=== PATIENT | female | born 1940 | race Caucasian/White ===

== ENCOUNTER 2021-03-27 16:16 | Inpatient (IN) | payer MEDICARE, OTHER ==
[~2021-03-27] VITALS: Ht 152.4 cm; Wt 69.4 kg
[2021-03-27] MEDS ORDERED: LOSA50 PO (16:32)
[2021-03-27] MEDS ORDERED: GLIP10 PO (16:32)
[2021-03-27] MEDS ORDERED: AMLO10 PO (16:32)
[2021-03-27 16:54] LABS: Source, Urine Catheter
[2021-03-27 17:04] LABS: Hematocrit 36.4 % (33.0-51.0); Hemoglobin 13.2 g/dL (11.5-16.0); Mean Corpuscular HGB 30.2 pg (26.0-34.0); Mean Corpuscular HGB Conc 36.3 g/dL (31.5-36.5); Mean Corpuscular Volume 83 fL (80-100); Mean Platelet Volume 8.9 fL (9.1-12.4); Platelet Count 668 K/mm3 (150-400); RDW Coefficient Variation 13.1 % (11.7-14.2); RDW Standard Deviation 40.1 fL (35.1-46.3); Red Blood Cell Count 4.37 M/mm3 (3.80-5.20); White Blood Cell Count 15.03 K/mm3 (4.00-11.30)
[2021-03-27 17:11] LABS: Appearance, Urine Clear (Clear); Bilirubin, Urine Neg (Neg); Blood, Urine 1+ (Neg); Color, Urine Yellow (P-Yellow); Glucose Qualitative, Urine 4+ (Neg); Ketones, Urine Neg (Neg); Leukocyte Esterase, Urine Neg (Neg); Nitrite, Urine Neg (Neg); Protein, Urine 2+ (Neg); Specific Gravity, Urine 1.005 (1.003-1.022); Urobilinogen, Urine 1+ (Normal)
[2021-03-27 17:20] LABS: Alanine Aminotransfer (ALT/SGP 137 U/L (12-78); Albumin, Blood 2.4 g/dL (3.4-5.0); Albumin/Globulin Ratio 0.5 (0.8-1.8); Alk Phos 150 U/L (50-136); Anion Gap 11 mmol/L (6-16); Aspartate Aminotrans (AST/SGOT 73 U/L (12-37); Bacteria Rare /hpf; Bilirubin, Total 0.6 mg/dL (0.1-1.0); Blood Urea Nitrogen 9 mg/dL (8-24); Bun/Creatinine Ratio 13.9 (12.0-20.0); CO2, Blood 25 mmol/L (21-32); Calcium, Blood 9.4 mg/dL (8.5-10.1); Chloride, Blood 85 mmol/L (98-108); Creatinine, Blood 0.65 mg/dL (0.40-1.00); Globulin, Blood 4.5 g/dL (2.2-4.0); Glomerular Filtration Rate >60 (60-); Glucose, Blood 297 mg/dL (70-99); Potassium, Blood 3.5 mmol/L (3.5-5.5); Sodium, Blood 121 mmol/L (136-145); Squamous Epithelial Cells Rare /hpf (Few); Total Protein, Blood 6.9 g/dL (6.4-8.2)
[2021-03-27 17:29] LABS: BAND PERCENT MAN 3 % (0-8); TOTAL CELLS COUNTED 100
[2021-03-27 17:42] LABS: BASOPHILS PERCENT MAN 0 % (0-2); EOSINOPHILS ABSOLUTE MAN 0.15 K/mm3 (0.00-0.68); EOSINOPHILS PERCENT MAN 1 % (0-6); LYMPHOCYTES % ATYPICAL MANUAL 1 % (0-0); LYMPHOCYTES ABSOLUTE MAN 0.75 K/mm3 (0.84-5.20); LYMPHOCYTES PERCENT MAN 4 % (21-46); METAMYELOCYTE PERCENT MAN 6 % (0-0); MONOCYTES ABSOLUTE MAN 0.75 K/mm3 (0.16-1.47); MONOCYTES PERCENT MAN 5 % (4-13); NEUTROPHILS ABSOLUTE MAN 12.47 K/mm3 (1.96-9.15); SEG NEUTROPHILS PERCENT MAN 80 % (41-73)
[2021-03-27] MEDS ORDERED: Aspir 8181 MG PO (18:39)
[2021-03-27 21:07] LABS: Adenovirus Not Detected (NOT DETECT); Bordetella pertussis Not Detected (NOT DETECT); Chlamydophila pneumoniae Not Detected (NOT DETECT); Coronavirus 229E Not Detected (NOT DETECT); Coronavirus HKU1 Not Detected (NOT DETECT); Coronavirus NL63 Not Detected (NOT DETECT); Coronavirus OC43 Not Detected (NOT DETECT); Human Metapneumovirus Not Detected (NOT DETECT); Human Rhinovirus/Enterovirus Not Detected (NOT DETECT); Influenza A/2009-H1 Not Detected (NOT DETECT); Influenza A/H1 Not Detected (NOT DETECT); Influenza A/H3 Not Detected (NOT DETECT); Influenza B Not Detected (NOT DETECT); Mycoplasma pneumoniae Not Detected (NOT DETECT); Parainfluenza Virus 1 Not Detected (NOT DETECT); Parainfluenza Virus 2 Not Detected (NOT DETECT); Parainfluenza Virus 3 Not Detected (NOT DETECT); Parainfluenza Virus 4 Not Detected (NOT DETECT); Respiratory Syncytial Virus Not Detected (NOT DETECT); SARS-Cov-2 (COVID-19), BioFire Not Detected (NOT DETECT)
[2021-03-28 05:36] LABS: Hematocrit 33.8 % (33.0-51.0); Hemoglobin 11.7 g/dL (11.5-16.0); Mean Corpuscular HGB 29.8 pg (26.0-34.0); Mean Corpuscular HGB Conc 34.6 g/dL (31.5-36.5); Mean Corpuscular Volume 86 fL (80-100); Mean Platelet Volume 8.7 fL (9.1-12.4); Platelet Count 621 K/mm3 (150-400); RDW Coefficient Variation 13.2 % (11.7-14.2); RDW Standard Deviation 41.3 fL (35.1-46.3); Red Blood Cell Count 3.92 M/mm3 (3.80-5.20); White Blood Cell Count 10.16 K/mm3 (4.00-11.30)
[2021-03-28 05:58] LABS: Alanine Aminotransfer (ALT/SGP 95 U/L (12-78); Albumin/Globulin Ratio 0.5 (0.8-1.8); Alk Phos 111 U/L (50-136); Anion Gap 8 mmol/L (6-16); Aspartate Aminotrans (AST/SGOT 29 U/L (12-37); Bilirubin, Total 0.4 mg/dL (0.1-1.0); Blood Urea Nitrogen 7 mg/dL (8-24); CO2, Blood 26 mmol/L (21-32); Calcium, Blood 8.6 mg/dL (8.5-10.1); Chloride, Blood 98 mmol/L (98-108); Creatinine, Blood 0.63 mg/dL (0.40-1.00); Globulin, Blood 3.9 g/dL (2.2-4.0); Glomerular Filtration Rate >60 (60-); Glucose, Blood 248 mg/dL (70-99); Potassium, Blood 3.1 mmol/L (3.5-5.5); Sodium, Blood 132 mmol/L (136-145); Total Protein, Blood 5.9 g/dL (6.4-8.2)
--- NOTE | 2021-03-28 06:02 | NUR ---
SHIFT SUMMARY PT WAS NEW ER ADMIT THIS SHIFT (2029), NO ACUTE CHANGES SINCE ASSUMING CARE, NO C/O ANY KIND, SLEPT T/O THE NIGHT, ABLE TO MAKE NEEDS KNOW, CALL LIGHT IN REACH, BED ALARM ACTIVE, WILL CONT TO MONITOR UNTIL REPORT GIVEN TO DAY RN.
[2021-03-28 06:57] LABS: BAND PERCENT MAN 1 % (0-8); BASOPHILS PERCENT MAN 0 % (0-2); EOSINOPHILS PERCENT MAN 0 % (0-6); LYMPHOCYTES PERCENT MAN 5 % (21-46); METAMYELOCYTE PERCENT MAN 5 % (0-0); MONOCYTES PERCENT MAN 6 % (4-13); MYELOCYTE PERCENT MAN 1 % (0-0); NEUTROPHILS ABSOLUTE MAN 8.43 K/mm3 (1.96-9.15); SEG NEUTROPHILS PERCENT MAN 82 % (41-73); TOTAL CELLS COUNTED 100
--- NOTE | 2021-03-28 19:41 | NUR ---
SUMMARY- PT A/O X3. UP TO CHAIR 1 SBA FOR ALL MEALS. AMBULATED IN CANALES WITH PT. BECAME WINDED WITH EXERTION IN CANALES AND THERAPY REPORTED SATS WENT DOWN TO 92%. PT RLL DIM. ENC TO USE FLUTTER AND COUGH DEEP BREATH TO GET SECRETIONS OUT. PT HAD HIGH BP THIS AM THAT CAME DOWN WITH ROUTINE MEDS. STARTING METOPROPLOL FOR RATE 108. POTASSUIM REPLACED FOR 3.1. 40MEQ PO. HERE TO VISIT AND DAUGHTER IN LAW. REPORT TO MANISHA ENRIQUE.
--- NOTE | 2021-03-29 06:15 | NUR ---
SHIFT SUMMARY NO ACUTE CHANGES TO REPORT THIS SHIFT. PT HAS RESTED MOST OF THE NIGHT. SHE HAS NO COMPLAINTS OF SOB, RESP E/U ON RA. SATS WNL. LUNGS DIMINISHED. PT STARTED ON METOPROLOL YESTERDAY FOR HER AFIB. RATE HAS BEEN WELL CONTROLLED ON TELE. VITALS ARE STABLE. PT IS A/OX4, PLESANT AND COOPERATIVE WITH CARE. PLAN IS FOR POSSIBLE DC TODAY. BED IN LOWEST POSITION, CALL LIGHT WITHIN REACH.
[2021-03-29 09:09] LABS: Hematocrit 36.9 % (33.0-51.0); Hemoglobin 12.8 g/dL (11.5-16.0); Mean Corpuscular HGB 29.8 pg (26.0-34.0); Mean Corpuscular HGB Conc 34.7 g/dL (31.5-36.5); Mean Corpuscular Volume 86 fL (80-100); Mean Platelet Volume 8.4 fL (9.1-12.4); Platelet Count 727 K/mm3 (150-400); RDW Coefficient Variation 13.7 % (11.7-14.2); RDW Standard Deviation 42.9 fL (35.1-46.3); Red Blood Cell Count 4.29 M/mm3 (3.80-5.20); White Blood Cell Count 11.63 K/mm3 (4.00-11.30)
[2021-03-29 09:43] LABS: BAND PERCENT MAN 6 % (0-8); BASOPHILS ABSOLUTE MAN 0.11 K/mm3 (0.00-0.23); BASOPHILS PERCENT MAN 1 % (0-2); EOSINOPHILS PERCENT MAN 0 % (0-6); LYMPHOCYTES ABSOLUTE MAN 0.34 K/mm3 (0.84-5.20); LYMPHOCYTES PERCENT MAN 3 % (21-46); METAMYELOCYTE ABSOLUTE MAN 0.11 K/mm3 (0.00-0.00); METAMYELOCYTE PERCENT MAN 1 % (0-0); MONOCYTES ABSOLUTE MAN 0.81 K/mm3 (0.16-1.47); MONOCYTES PERCENT MAN 7 % (4-13); MYELOCYTE ABSOLUTE MAN 0.11 K/mm3 (0.00-0.00); MYELOCYTE PERCENT MAN 1 % (0-0); NEUTROPHILS ABSOLUTE MAN 10.11 K/mm3 (1.96-9.15); SEG NEUTROPHILS PERCENT MAN 81 % (41-73); TOTAL CELLS COUNTED 100
[2021-03-29 09:47] LABS: Anion Gap 10 mmol/L (6-16); Blood Urea Nitrogen 8 mg/dL (8-24); Bun/Creatinine Ratio 12.6 (12.0-20.0); CO2, Blood 24 mmol/L (21-32); Calcium, Blood 9.4 mg/dL (8.5-10.1); Chloride, Blood 101 mmol/L (98-108); Creatinine, Blood 0.63 mg/dL (0.40-1.00); Glomerular Filtration Rate >60 (60-); Glucose, Blood 280 mg/dL (70-99); Potassium, Blood 3.7 mmol/L (3.5-5.5); Sodium, Blood 135 mmol/L (136-145)
[2021-03-29] MEDS ORDERED: ACET325 PO (11:22)
[2021-03-29] MEDS ORDERED: METO50 PO (11:23)
[2021-03-29] MEDS ORDERED: GUAI600T33 PO (11:23)
[2021-03-29] MEDS ORDERED: DOCU100 PO (11:23)
[2021-03-29] MEDS ORDERED: ELIQUIS5 M2 PO (11:24)
[2021-03-29] MEDS ORDERED: AZIT250 PO (11:24)
[2021-03-29] MEDS ORDERED: CEFP200 PO (11:25)
--- NOTE | 2021-03-29 16:00 | NUR ---
Echocardiogram performed by Sunita Urena under my supervision.
--- NOTE | 2021-03-29 18:33 | NUR ---
DISCHARGE NOTE PT IS AOX4 AND PLEASANT. THIS RN REMOVED IV FROM LEFT HAND. DC INSTRUCTIONS REVIEWED WITH PT AND FAMILY WHO VERBALIZED AN UNDERSTANDING. FAMILY ASSISTED PT INTO HOME CLOTHING. PT LEFT UNIT IN WHEELCHAIR WITH SENIOR FIRMWARE ENGINEER. FAMILY BROUGHT PT'S BELONGINGS HOME. PT HAS LEFT THE BUILDING.
== END 2021-03-29 18:34 | disposition home health service (06) | DRG 871 ==
LOC: ER 16:16 → MEDS 18:44
PROVIDERS: Emergency Medicine; ADMIT Internal Medicine
DX: A41.9 Sepsis, unspecified organism (principal); G93.41 Metabolic encephalopathy; J18.9 Pneumonia, unspecified organism; E87.1 Hypo-osmolality and hyponatremia; Z20.822 Contact with and (suspected) exposure to COVID-19; R65.20 Severe sepsis without septic shock; I10 Essential (primary) hypertension; I48.91 Unspecified atrial fibrillation; E11.65 Type 2 diabetes mellitus with hyperglycemia; R79.89 Other specified abnormal findings of blood chemistry; T37.4X5A Adverse effect of anthelminthics, initial encounter; Z79.84 Long term (current) use of oral hypoglycemic drugs; Z79.899 Other long term (current) drug therapy
CPT/HCPCS: 0202U; 36415; 71046; 80048; 80053; 81001; 82947; 83605; 84295; 85025; 87040; 93005; 93010; 93306; 94760; 96365; 96367; 97116; 97162; 97165; 97530; 97535; 99285-25; A9270; J0360; J0456; J0696; J1644; J1815; J7030; J7050

== ENCOUNTER → 2024-02-14 | Outpatient (CLI) | payer MEDICARE, OTHER ==
[~2024-02-14] MED LIST: ACET325 PO; AMLO10 PO; AZIT250 PO; Aspir 8181 MG PO; CEFP200 PO; DOCU100 PO; ELIQUIS5 M2 PO; GLIP10 PO; GUAI600T33 PO; LOSA50 PO; METO50 PO
[2024-02-14 19:49] LABS: BASOPHILS ABSOLUTE AUTO 0.04 K/mm3 (0.00-0.23); BASOPHILS PERCENT AUTO 1 % (0-2); EOSINOPHILS ABSOLUTE AUTO 0.14 K/mm3 (0.00-0.68); EOSINOPHILS PERCENT AUTO 2 % (0-6); Hematocrit 41.7 % (33.0-51.0); Hemoglobin 14.1 g/dL (11.5-16.0); IMMATURE GRAN ABSOLUTE AUTO 0.07 K/mm3 (0.00-0.10); IMMATURE GRAN PERCENT AUTO 1 % (0-1); LYMPHOCYTES ABSOLUTE AUTO 1.42 K/mm3 (0.84-5.20); LYMPHOCYTES PERCENT AUTO 19 % (21-46); MONOCYTES ABSOLUTE AUTO 0.56 K/mm3 (0.16-1.47); MONOCYTES PERCENT AUTO 8 % (4-13); Mean Corpuscular HGB 30.7 pg (26.0-34.0); Mean Corpuscular HGB Conc 33.8 g/dL (31.5-36.5); Mean Corpuscular Volume 91 fL (80-100); Mean Platelet Volume 10.3 fL (9.1-12.4); NEUTROPHILS ABSOLUTE AUTO 5.24 K/mm3 (1.96-9.15); NEUTROPHILS PERCENT AUTO 70 % (41-73); Platelet Count 283 K/mm3 (150-400); RDW Coefficient Variation 13.9 % (11.7-14.2); RDW Standard Deviation 46.4 fL (35.1-46.3); Red Blood Cell Count 4.59 M/mm3 (3.80-5.20); White Blood Cell Count 7.47 K/mm3 (4.00-11.30)
[2024-02-14 20:19] LABS: Alanine Aminotransfer (ALT/SGP 27 U/L (12-78); Albumin/Globulin Ratio 1.1 (0.8-1.8); Alk Phos 103 U/L (50-136); Anion Gap 7 mmol/L (3-11); Aspartate Aminotrans (AST/SGOT 12 U/L (12-37); Bilirubin, Total 0.6 mg/dL (0.1-1.0); Blood Urea Nitrogen 21 mg/dL (8-24); Bun/Creatinine Ratio 27.2 (12.0-20.0); CHOL/HDL RATIO 4.1; CO2, Blood 28 mmol/L (21-32); Calcium, Blood 9.7 mg/dL (8.5-10.1); Chloride, Blood 112 mmol/L (98-108); Cholesterol 213 mg/dL (50-200); Creatinine, Blood 0.77 mg/dL (0.40-1.00); Globulin, Blood 3.5 g/dL (2.2-4.0); Glomerular Filtration Rate 76 (60-); Glucose, Blood 181 mg/dL (70-99); HDL Cholesterol 52 mg/dL (>39); LDL/HDL RATIO 2.3; Low Density Lipoprotein Chol 119 mg/dL (0-110); Potassium, Blood 3.8 mmol/L (3.5-5.5); Sodium, Blood 143 mmol/L (136-145); Total Protein, Blood 7.5 g/dL (6.4-8.2); Triglycerides 210 mg/dL (30-160); Very Low Density Lipoprot Chol 42 mg/dL (6-32)
[2024-02-14 20:41] LABS: Creatinine, Urine Random 55.3 mg/dL (27.00-270.00); Microalb/Creat Ratio UR, Rand 385.172 mg/g (0.000-30.000)
== END ==
LOC: LAB SHORT 18:43 → LAB 18:43
PROVIDERS: Student in an Organized Health Care Education/Training Program
DX: E11.9 Type 2 diabetes mellitus without complications (principal)
CPT/HCPCS: 80053; 80061; 82043; 82570; 85025

== ENCOUNTER 2025-03-06 17:10 | Inpatient (IN) | payer MEDICARE, OTHER ==
[~2025-03-06] VITALS: Ht 152.4 cm; Wt 63.5 kg
[2025-03-06 17:59] LABS: Base Excess Venous -6.2 mmol/L; Bicarbonate Venous 19.5 mmol/L (24.0-30.0); PCO2 Venous 37.6 mmHg (38-42); pH Blood Venous 7.33 (7.34-7.37)
[2025-03-06 18:16] LABS: Source, Urine Straight Cath
[2025-03-06 18:20] LABS: Hemoglobin 11.1 g/dL (11.5-16.0); Mean Corpuscular HGB 31.6 pg (26.0-34.0); Mean Corpuscular HGB Conc 34.7 g/dL (31.5-36.5); Mean Corpuscular Volume 91 fL (80-100); Mean Platelet Volume 11.4 fL (9.1-12.4); Platelet Count 229 K/mm3 (150-400); RDW Coefficient Variation 14.3 % (11.7-14.2); RDW Standard Deviation 47.7 fL (35.1-46.3); Red Blood Cell Count 3.51 M/mm3 (3.80-5.20); White Blood Cell Count 35.81 K/mm3 (4.00-11.30)
[2025-03-06] MEDS ORDERED: NS 1,000 ML IV SCH (18:20)
[2025-03-06 18:23] LABS: Appearance, Urine Cloudy (Clear); Bilirubin, Urine Neg (Neg); Blood, Urine 5+ (Neg); Color, Urine Yellow (P-Yellow); Glucose Qualitative, Urine 3+ (Neg); Ketones, Urine 1+ (Neg); Leukocyte Esterase, Urine 3+ (Neg); Nitrite, Urine Neg (Neg); Protein, Urine 3+ (Neg); Specific Gravity, Urine 1.015 (1.003-1.022); Urobilinogen, Urine NORM (Normal)
[2025-03-06 18:33] LABS: Alanine Aminotransfer (ALT/SGP 18 U/L (12-78); Albumin, Blood 2.2 g/dL (3.4-5.0); Albumin/Globulin Ratio 0.5 (0.8-1.8); Alk Phos 126 U/L (50-136); Anion Gap 19 mmol/L (3-11); Aspartate Aminotrans (AST/SGOT 13 U/L (12-37); Bilirubin, Total 0.8 mg/dL (0.1-1.0); Blood Urea Nitrogen 86 mg/dL (8-24); Bun/Creatinine Ratio 23.6 (12.0-20.0); CO2, Blood 20 mmol/L (21-32); Calcium, Blood 8.6 mg/dL (8.5-10.1); Chloride, Blood 97 mmol/L (98-108); Creatinine, Blood 3.64 mg/dL (0.40-1.00); Globulin, Blood 4.1 g/dL (2.2-4.0); Glomerular Filtration Rate 12 (60-); Glucose, Blood 499 mg/dL (70-99); Potassium, Blood 3.9 mmol/L (3.5-5.5); Sodium, Blood 132 mmol/L (136-145); Total Protein, Blood 6.3 g/dL (6.4-8.2)
[2025-03-06 18:40] LABS: Beta-hydroxybutyrate 19.4 mg/dL (0.2-2.8)
[2025-03-06 18:47] LABS: Bacteria Many /hpf; White Blood Cells, Urine TNTC /hpf (0-5)
[2025-03-06 18:49] LABS: Granular Casts 0-2 /lpf (0); Red Blood Cells, Urine 0-2 /hpf (0-2); Squamous Epithelial Cells Not Seen /hpf (Few)
[2025-03-06] MEDS ORDERED: Insulin Human Regular 100 UNIT in NS 100 ML IV SCH (18:50)
[2025-03-06] MEDS ORDERED: CefTRIAXone Sodium 1,000 MG in NS 100 ML IV ONE (18:55)
[2025-03-06] MEDS ORDERED: Potassium Chl 20MEQ/Water100ML 100 ML IV ONE (18:55)
[2025-03-06 18:58] LABS: BAND PERCENT MAN 7 % (0-8); BASOPHILS PERCENT MAN 0 % (0-2); EOSINOPHILS PERCENT MAN 0 % (0-6); MONOCYTES ABSOLUTE MAN 0.71 K/mm3 (0.16-1.47); MONOCYTES PERCENT MAN 2 % (4-13); NEUTROPHILS ABSOLUTE MAN 35.09 K/mm3 (1.96-9.15); SEG NEUTROPHILS PERCENT MAN 91 % (41-73); TOTAL CELLS COUNTED 100
[2025-03-06 19:38] LABS: Influenza A, PCR NEGATIVE (NEGATIVE); Influenza B, PCR NEGATIVE (NEGATIVE); Resp Syncytial Virus, PCR NEGATIVE (NEGATIVE); SARS-Cov-2 (COVID-19) PCR, MMC NEGATIVE (NEGATIVE)
[2025-03-06 20:14] LABS: Base Excess Venous -6.6 mmol/L; Bicarbonate Venous 18.9 mmol/L (24.0-30.0); PCO2 Venous 43.5 mmHg (38-42); pH Blood Venous 7.28 (7.34-7.37)
[2025-03-06] MEDS ORDERED: Lactated Ringer's 1,000 ML IV SCH (20:15)
[2025-03-06 20:41] LABS: Bun/Creatinine Ratio 23.4 (12.0-20.0); Calcium, Blood 8.4 mg/dL (8.5-10.1); Creatinine, Blood 3.64 mg/dL (0.40-1.00); Potassium, Blood 4.2 mmol/L (3.5-5.5)
[2025-03-06 21:00] VITALS: BP 139/60
[2025-03-06 21:30] VITALS: BP 114/62
[2025-03-06 22:00] VITALS: BP 123/61
[2025-03-06 22:30] VITALS: BP 105/57
--- NOTE | 2025-03-06 22:32 | NUR ---
PROVIDER NOTIFICATION CALL PLACED TO DR. VANCE AT 2220 TO NOTIFY OF A 1X1CM R SMALL TOE DIABETIC ULCER DISCOVERED ON PTs ARRIVAL TO ICU. PROVIDER STATED HE WOULD PUT WOUND CARE ORDERS IN. PHOTOS TAKEN AND PLACED IN CHART, DRESSING APPLIED.
[2025-03-06 23:00] VITALS: BP 115/56
[2025-03-06 23:30] VITALS: BP 120/58
[2025-03-06] MEDS ORDERED: METF500 PO (23:36)
[2025-03-06 23:42] LABS: Base Excess Venous -4.9 mmol/L; Bicarbonate Venous 21.1 mmol/L (24.0-30.0); PCO2 Venous 32.2 mmHg (38-42)
[2025-03-07] VITALS (21 sets, daily range): BP systolic 113–154; BP diastolic 54–75
[2025-03-07 00:11] LABS: Bun/Creatinine Ratio 22.2 (12.0-20.0); Calcium, Blood 8.5 mg/dL (8.5-10.1); Creatinine, Blood 3.83 mg/dL (0.40-1.00); Potassium, Blood 3.6 mmol/L (3.5-5.5)
[2025-03-07] MEDS ORDERED: D5W-1/2NS KCl 40mEq 1,000 ML IV SCH (01:40)
[2025-03-07] MEDS ORDERED: Lactated Ringer's 500 ML IV SCH (02:00)
[2025-03-07] MEDS ORDERED: Ondansetron HCl 2 MG / ML 2ML Vial IV PRN (02:55)
[2025-03-07 03:41] LABS: Hematocrit 32.8 % (33.0-51.0); Hemoglobin 11.1 g/dL (11.5-16.0); Mean Corpuscular HGB 31.2 pg (26.0-34.0); Mean Corpuscular HGB Conc 33.8 g/dL (31.5-36.5); Mean Corpuscular Volume 92 fL (80-100); Mean Platelet Volume 11.1 fL (9.1-12.4); Platelet Count 192 K/mm3 (150-400); RDW Coefficient Variation 14.6 % (11.7-14.2); RDW Standard Deviation 49.4 fL (35.1-46.3); Red Blood Cell Count 3.56 M/mm3 (3.80-5.20); White Blood Cell Count 35.49 K/mm3 (4.00-11.30)
[2025-03-07 04:01] LABS: BAND PERCENT MAN 12 % (0-8); BASOPHILS PERCENT MAN 0 % (0-2); EOSINOPHILS PERCENT MAN 0 % (0-6); LYMPHOCYTES ABSOLUTE MAN 1.06 K/mm3 (0.84-5.20); LYMPHOCYTES PERCENT MAN 3 % (21-46); MONOCYTES ABSOLUTE MAN 2.12 K/mm3 (0.16-1.47); MONOCYTES PERCENT MAN 6 % (4-13); NEUTROPHILS ABSOLUTE MAN 32.29 K/mm3 (1.96-9.15); SEG NEUTROPHILS PERCENT MAN 79 % (41-73); TOTAL CELLS COUNTED 100
[2025-03-07 04:03] LABS: Albumin, Blood 1.8 g/dL (3.4-5.0); Albumin/Globulin Ratio 0.5 (0.8-1.8); Bilirubin, Total 0.5 mg/dL (0.1-1.0); Bun/Creatinine Ratio 23.7 (12.0-20.0); Calcium, Blood 8.5 mg/dL (8.5-10.1); Creatinine, Blood 3.75 mg/dL (0.40-1.00); Globulin, Blood 3.8 g/dL (2.2-4.0); Potassium, Blood 3.9 mmol/L (3.5-5.5); Total Protein, Blood 5.6 g/dL (6.4-8.2)
--- NOTE | 2025-03-07 04:52 | NUR ---
SHIFT SUMMARY PT A/OX4, DROWSY BUT ROUSES TO VERBAL STIMULI. MAKES NEEDS KNOWN. ON ROOM AIR, SATS > 92%, WILL SOMETIMES DESAT TO HIGH 80'S WHILE ASLEEP BUT RECOVERS QUICKLY W/O INTERVENTION. LS CLEAR. ON FRAME WIRER, PT WAS TACHY IN THE 110'S ON ARRIVAL, HR NOW 80'S IN NSR, BP STABLE. PT HAD ONE EPISODE OF NAUSEA THIS SHIFT, ZOFRAN ORDERED AND ADMINISTERED. NO BM. PT WAS STRAIGHT CATHED IN ED BUT HAS NOT VOIDED SINCE ARRIVAL TO UNIT, BLADDER SCANNED AROUND 0400- 72MLS IN BLADDER. PUREWICK AND ATTENDS IN PLACE. PT HAS DIABETIC ULCER ON INSIDE OF R SMALL TOE, PROVIDER NOTIFIED, PHOTOS IN CHART. SMALL FOAM DRESSING APPLIED. INSULIN GTT INFUSING TO LAC PIV. PT HAS HAD UNEVENTFUL SHIFT. CALL LIGHT IN REACH.
[2025-03-07 08:16] LABS: Bun/Creatinine Ratio 23.3 (12.0-20.0); Calcium, Blood 8.8 mg/dL (8.5-10.1); Creatinine, Blood 3.78 mg/dL (0.40-1.00); Potassium, Blood 4.1 mmol/L (3.5-5.5)
[2025-03-07] MEDS ORDERED: Heparin Sodium 5000 Units/ML 1ML MDV SC SCH (09:00)
[2025-03-07] MEDS ORDERED: Enoxaparin 30 MG/0.3 ML SYR SC SCH (09:00)
[2025-03-07] MEDS ORDERED: Insulin NPH 100 Unit / ML 10ML Vial SC ONE (09:20)
[2025-03-07] MEDS ORDERED: Insulin Human Lispro 100 Units/ML 3ML Syringe SC SCH ×2 (11:30→17:15)
[2025-03-07 12:12] LABS: Bun/Creatinine Ratio 23.7 (12.0-20.0); Calcium, Blood 8.4 mg/dL (8.5-10.1); Creatinine, Blood 3.71 mg/dL (0.40-1.00); Potassium, Blood 4.3 mmol/L (3.5-5.5)
--- NOTE | 2025-03-07 15:03 | NUR ---
+ GRAM NEG BACILLI ON BLOOD CULTURES X 2. CALL TO DR MOELLER TO NOTIFY. VERBAL ORDERS RECIEVED. D/C ROCEPHIN, START CEFIPIME 2G Q8HR, ORDERS PLACED. PT DUE FOR SECOND SET OF BLOOD CULTURES TO BE DRAWN AT 1530.
--- NOTE | 2025-03-07 15:36 | NUR ---
SHIFT SUMMARY NEURO: ALERT AND ORIENTED X4. ABLE TO MAKE HER NEEDS KNOWN CARDIAC: SINUS RHYTHM, SBP 130-150S, HR 80-90S. LUNGS: CLEAR TO AUSCULATION, DENIES ANY SOB, NO ORTHOPNEA GI: ABDOMEN IS SOFT/NON TENDER, NORMOACTIVE BOWEL TONES, SMALL BM TODAY. SOME NAUSEA THIS MORNING, DENIED NAUSEA THIS AFTERNOON. : INCONTINENT OF URINE, SRIKANTH/BLADDER COMPLETED. LOTS OF ENCOURAGEMENT NEEDED FOR PO FLUID INTAKE. INSULIN STOPPED APPROX 1220 AND TRANSITIONED TO SQ INSULIN. FAMILY INTO VISIT TODAY. EDUCATION PROVIDED ON DM2 AND UTI. PATIENT QUITE SLEEPY TODAY REFUSED BED BATH THIS MORNING WILL ATTEMPT AGAIN BEFORE DINNER.
[2025-03-07] MEDS ORDERED: Cefepime HCl 2,000 MG in NS 100 ML IV SCH (16:00)
[2025-03-07] MEDS ORDERED: Cefepime HCl 1,000 MG in NS 100 ML IV SCH (16:00)
[2025-03-07 16:37] LABS: Bun/Creatinine Ratio 22.7 (12.0-20.0); Calcium, Blood 8.3 mg/dL (8.5-10.1); Creatinine, Blood 3.87 mg/dL (0.40-1.00); Potassium, Blood 4.6 mmol/L (3.5-5.5)
[2025-03-07] MEDS ORDERED: Lactated Ringer's 1,000 ML IV SCH ×2 (17:15→17:20)
--- NOTE | 2025-03-07 17:16 | NUR ---
CALL TO REVIEW BMP RESULTS WITH DR MOELLER. TELEPHONE ORDER FOR LR 2L AT 200ML/HR, INCREASE LISPRO SS TO MODERATE AND ORDER AM LACTIC ACID. ORDERS PLACED. STATUS UPDATED TO PCU PER DR MOELLER.
--- NOTE | 2025-03-07 20:08 | NUR ---
ASSUMPTION OF CARE CARE OF PT ASSUMED FOLLOWING BEDSIDE SHIFT REPORT. PT LYING IN BED ALERT AND ORIENTED. VSS. NO CHEST PAIN/PRESSURE, SOB, AB PAIN, N/V. PT HAS BEEN TRANSITIONED TO SC INSULIN, LONG-ACTING AND MEDIUM SS. LR INFUSING AT 200ML/HR. WILL REVIEW AND CONTINUE PLAN OF CARE.
[2025-03-07 20:22] LABS: Bun/Creatinine Ratio 22.3 (12.0-20.0); Calcium, Blood 8.1 mg/dL (8.5-10.1); Creatinine, Blood 3.86 mg/dL (0.40-1.00); Potassium, Blood 4.5 mmol/L (3.5-5.5)
[2025-03-07] MEDS ORDERED: CefTRIAXone Sodium 1,000 MG in NS 100 ML IV SCH (21:00)
[2025-03-07] MEDS ORDERED: Insulin Glargine-Yfgn 100 Unit/mL 3 ML SYR SC SCH (21:00)
[2025-03-08] VITALS (11 sets, daily range): BP systolic 145–171; BP diastolic 64–95
[2025-03-08 03:55] LABS: BASOPHILS ABSOLUTE AUTO 0.16 K/mm3 (0.00-0.23); BASOPHILS PERCENT AUTO 1 % (0-2); EOSINOPHILS ABSOLUTE AUTO 0.06 K/mm3 (0.00-0.68); EOSINOPHILS PERCENT AUTO 0 % (0-6); Hematocrit 33.2 % (33.0-51.0); IMMATURE GRAN PERCENT AUTO 4 % (0-1); LYMPHOCYTES ABSOLUTE AUTO 0.73 K/mm3 (0.84-5.20); LYMPHOCYTES PERCENT AUTO 3 % (21-46); MONOCYTES ABSOLUTE AUTO 1.18 K/mm3 (0.16-1.47); MONOCYTES PERCENT AUTO 4 % (4-13); Mean Corpuscular HGB 31.3 pg (26.0-34.0); Mean Corpuscular HGB Conc 33.1 g/dL (31.5-36.5); Mean Corpuscular Volume 94 fL (80-100); Mean Platelet Volume 10.9 fL (9.1-12.4); NEUTROPHILS PERCENT AUTO 88 % (41-73); Platelet Count 187 K/mm3 (150-400); RDW Coefficient Variation 15.2 % (11.7-14.2); RDW Standard Deviation 52.6 fL (35.1-46.3); Red Blood Cell Count 3.52 M/mm3 (3.80-5.20); White Blood Cell Count 28.53 K/mm3 (4.00-11.30)
[2025-03-08 04:34] LABS: Albumin, Blood 1.8 g/dL (3.4-5.0); Albumin/Globulin Ratio 0.4 (0.8-1.8); Bilirubin, Total 0.6 mg/dL (0.1-1.0); Bun/Creatinine Ratio 23.3 (12.0-20.0); Calcium, Blood 8.6 mg/dL (8.5-10.1); Creatinine, Blood 3.78 mg/dL (0.40-1.00); Globulin, Blood 4.1 g/dL (2.2-4.0); Potassium, Blood 4.6 mmol/L (3.5-5.5); Total Protein, Blood 5.9 g/dL (6.4-8.2)
--- NOTE | 2025-03-08 07:38 | NUR ---
SHIFT SUMMARY PT LYING IN BED IN NO APPARENT DISTRESS, ALERT AND ORIENTED TO ALL. NO CHEST PAIN/PRESSURE, SOB, AB PAIN, N/V. C/O DECREASED APPETITE. VSS ALL NIGHT. BP SLIGHTLY ELEVATED. PT INCONTINENT OF URINE X 3. 1 SMEAR. 2 LITER LR INFUSED. PT NOW SALINE LOCKED. REPORT GIVEN TO ONCOMING RN.
[2025-03-08] MEDS ORDERED: Lactated Ringer's 1,000 ML IV SCH (09:00)
--- NOTE | 2025-03-08 09:43 | NUR ---
AM NOTE: PATIENT ALERT AND ORIENTED X4. MOVING ALL EXTREMITIES AND ABLE TO TURN SELF IN BED. DENIES NUMBNESS/TINGLING. UP TO RECLINER FOR MEALS. USING FWW AND 1 PERSON FOR TRANSFER. WEAKNESS NOTED TO BLE. TELE SHOWING SR WITH PVC'S. HR 80-90'S. DENIES CHEST PAIN/PRESSURE/PALPIATIONS. SBP 140-150'S. IV LR INFUSING PER EMAR AT THIS TIME. NO EDEMA NOTED. ON ROOM AIR SATING ABOVE 95%. LUNG SOUNDS CLEAR AND DIM IN BASES. DENIES SOB/COUGH. EVEN AND UNLABORED RESPIRTATIONS. BOWEL TONES PRESENT THROUGHOUT ALL FOUR QUADRANTS. POOR APPEATITE. DRINKING WATER. ATTENDS IN PLACE. INCONTINENT OF URINE. DENIES ABDOMINAL PAIN/NAUSEA. ACHS BLOOD SUGAR CHECKS. RIGHT PINKY TOE WITH WOUND, FOAM DRESSING CHANGED THIS AM. DR. MOELLER TO BEDSIDE THIS AM AND THIS RN PRESENT. ORDERS FOR MEDICAL STATUS NO TELE. DISCUSSED CURRENT FLUIDS INFUSING, KIDNEY FUNCTION AND REPEAT 1400 BMP. CALL LIGHT IN REACH. PATIENT IN BED AT THIS TIME AND DENIES NEEDS.
--- NOTE | 2025-03-08 10:54 | NUR ---
DAUGHTERS TO BEDSIDE, THIS RN PROVIDED UPDATE. PATIENT DENIES NEEDS AT THIS TIME. LR CONTINUES TO INFUSE.
[2025-03-08 14:49] LABS: Bun/Creatinine Ratio 24.3 (12.0-20.0); Calcium, Blood 9.1 mg/dL (8.5-10.1); Creatinine, Blood 3.91 mg/dL (0.40-1.00); Potassium, Blood 4.6 mmol/L (3.5-5.5)
[2025-03-08] MEDS ORDERED: ZINC OXIDE/PETROLATUM, YELLOW 1 APPLIC/71 GM PASTE TOP PRN (14:50)
--- NOTE | 2025-03-08 15:10 | NUR ---
DR. MOELLER UPDATED ON 1400 BMP RESULTS. NO NEW ORDERS AT THIS TIME.
--- NOTE | 2025-03-08 15:21 | NUR ---
PATIENT BLOOD PRESSURE 171/75. DR. MOELLER CALLED BY THIS RN TO UPDATE. PLAN TO START PO NORVASC NOW. ORDERS IN PLACE. PATIENT AND FAMILY UPDATED.
[2025-03-08] MEDS ORDERED: AmLODIPine Besylate 5 MG Tab PO SCH (15:25)
--- NOTE | 2025-03-08 18:08 | NUR ---
SHIFT SUMMARY: PATIENT REMAINS ALERT AND ORIENTED UP TO RECLINER FOR MEALS. FAMILY AT BEDSIDE THROUGHOUT SHIFT. ON ROOM AIR. TELE SHOWING SR WITH HR 90'S. DENIES CHEST PAIN/PRESSURE/PALPITATIONS. BLOOD PRESSURE IMPROVED POST PO NORVASC ADMINISTRATION. SBP 140'S. CONTINUES TO HAVE POOR APPETITE. INCONT OF URINE THROUGHOUT SHIFT. REFUSED PUREWICK. ATTENDS IN PLACE. IV ABX INFUSING AT THIS TIME. CALL LIGHT IN REACH. PATIENT SITTING UP IN RECLINER AT THIS TIME WITH FAMILY AT BEDSIDE.
[2025-03-08] MEDS ORDERED: Docusate Sodium 100 MG Cap PO SCH (21:00)
[2025-03-08] MEDS ORDERED: Insulin Glargine-Yfgn 100 Unit/mL 3 ML SYR SC SCH (21:00)
--- NOTE | 2025-03-08 22:32 | NUR ---
ASSUMPTION OF CARE: ASSUMED CARE AT 1905 W/ JOHN ENRIQUE. PT IS MED FLOOR STATUS AND A&OX4 WITH A D/C TELE STATUS. PT HAS A PINKY TOE ULCER THATS WRAPPED, CLEAN AND INTACT. PT DID NOT REQURE HUMALOG THIS EVENING BUT DID RECIEVE 15 UNITS OF LANTUS. PT HAS 3 PATENT IV'S IN THE LAC,RAC AND LFA. PT IS INCONT TO URINE AT TIMES AND IS A 1-2 PERSON CHANGE AND USES WALKER AT BASELINE. PT TOOK MEDS WWW AND ON RA. PT HAS CALL LIGHT IN REACH AND MAKES NEEDS KNOWN.
[2025-03-09 03:52] VITALS: BP 172/79
[2025-03-09 04:04] LABS: BASOPHILS ABSOLUTE AUTO 0.09 K/mm3 (0.00-0.23); BASOPHILS PERCENT AUTO 1 % (0-2); EOSINOPHILS ABSOLUTE AUTO 0.06 K/mm3 (0.00-0.68); EOSINOPHILS PERCENT AUTO 0 % (0-6); Hematocrit 33.1 % (33.0-51.0); IMMATURE GRAN ABSOLUTE AUTO 0.34 K/mm3 (0.00-0.10); IMMATURE GRAN PERCENT AUTO 2 % (0-1); LYMPHOCYTES ABSOLUTE AUTO 0.75 K/mm3 (0.84-5.20); LYMPHOCYTES PERCENT AUTO 4 % (21-46); MONOCYTES ABSOLUTE AUTO 0.96 K/mm3 (0.16-1.47); MONOCYTES PERCENT AUTO 5 % (4-13); Mean Corpuscular HGB 30.8 pg (26.0-34.0); Mean Corpuscular HGB Conc 33.2 g/dL (31.5-36.5); Mean Corpuscular Volume 93 fL (80-100); Mean Platelet Volume 11.5 fL (9.1-12.4); NEUTROPHILS ABSOLUTE AUTO 17.19 K/mm3 (1.96-9.15); NEUTROPHILS PERCENT AUTO 89 % (41-73); Platelet Count 182 K/mm3 (150-400); RDW Coefficient Variation 15.2 % (11.7-14.2); RDW Standard Deviation 52.4 fL (35.1-46.3); Red Blood Cell Count 3.57 M/mm3 (3.80-5.20); White Blood Cell Count 19.39 K/mm3 (4.00-11.30)
[2025-03-09 04:20] LABS: Bun/Creatinine Ratio 24.9 (12.0-20.0); Calcium, Blood 8.8 mg/dL (8.5-10.1); Creatinine, Blood 4.05 mg/dL (0.40-1.00); Potassium, Blood 4.9 mmol/L (3.5-5.5)
--- NOTE | 2025-03-09 05:15 | NUR ---
SHIFT SUMM: PT HAS BEEN RELAXING AND RESTING MOST OF THE SHIFT AND HAS BEEN A 1-2 PERSON ASSIST TO TURN AND CHANGE AND IS INCONT TO URINE. PT REFUSED PURE WICK BUT ATTENDS HAVE BEEN IN PLACE. PT WAS ABLE TO TOLERATE APPLESAUCE AND WATER THIS SHIFT AND TOOK [email or web address] WELL. PT'S PINKY TOE DRESSING REMAINS INTACT AND PATENT IV'S TO THE LAC,RAC AND LFA. PT HAS BEEN A&0X4 AND CALLS TO MAKE NEEDS KNOWN W/CALL LIGHT IN REACH AND BED LOW AND LOCKED FOR SAFETY.
[2025-03-09] MEDS ORDERED: HydrALAZINE HCl 20 MG / ML 1ML Vial IV PRN (07:55)
[2025-03-09 08:11] VITALS: BP 172/79
[2025-03-09 08:14] VITALS: BP 172/79
[2025-03-09 08:33] VITALS: BP 170/69
[2025-03-09] MEDS ORDERED: AmLODIPine Besylate 5 MG Tab PO SCH (09:00)
[2025-03-09] MEDS ORDERED: CefTRIAXone Sodium 2,000 MG in NS 100 ML IV SCH (09:00)
--- NOTE | 2025-03-09 17:35 | NUR ---
SHIFT SUMMARY PT A&OX4, FOLLOWING COMMANDS. VSS. UP TO BEDSIDE CHAIR WITH SBA. PT WORKED WITH PT/OT TODAY, SEE THEIR NOTES. OCCASIONALLY INCONTINENT OF URINE, ATTENDS IN PLACE. TOLERATING PO INTAKE, ADEQUATE APPETITE. NO ACUTE CHANGES TODAY. PT TO BE MOVED TO MEDICAL ROOM 335.
[2025-03-09 19:47] VITALS: BP 160/71
[2025-03-09] MEDS ORDERED: Lactobacil 2-S.Thermo-Bifido 1 1 Cap PO SCH (21:00)
[2025-03-10 02:03] VITALS: BP 159/69
--- NOTE | 2025-03-10 05:19 | NUR ---
SHIFT SUMMARY NOC PT A/O X 4. PLEASANT AND COOPERATIVE WITH CARE. VSS. HS CBG 229 WITH 15 UNITS LONG ACTING INSULIN GIVEN. R PINKY TOE HAS DRESSING IN PLACE C/D/I. PT STILL HAS POOR APPETITE AND LIMITED PO FLUID INTAKE. RENAL FUNCTION BEING TRENDED, AWAITING AM LABS FOR IMPROVEMENT. PT CURRENTLY RESTING WITH BED IN LOWEST POSITION, AND CALL LIGHT WITHIN REACH.
[2025-03-10 05:50] LABS: BASOPHILS ABSOLUTE AUTO 0.08 K/mm3 (0.00-0.23); BASOPHILS PERCENT AUTO 0 % (0-2); EOSINOPHILS ABSOLUTE AUTO 0.09 K/mm3 (0.00-0.68); EOSINOPHILS PERCENT AUTO 0 % (0-6); Hematocrit 32.9 % (33.0-51.0); IMMATURE GRAN ABSOLUTE AUTO 0.77 K/mm3 (0.00-0.10); IMMATURE GRAN PERCENT AUTO 4 % (0-1); LYMPHOCYTES ABSOLUTE AUTO 0.94 K/mm3 (0.84-5.20); LYMPHOCYTES PERCENT AUTO 5 % (21-46); MONOCYTES ABSOLUTE AUTO 1.22 K/mm3 (0.16-1.47); MONOCYTES PERCENT AUTO 6 % (4-13); Mean Corpuscular HGB 31.1 pg (26.0-34.0); Mean Corpuscular HGB Conc 33.4 g/dL (31.5-36.5); Mean Corpuscular Volume 93 fL (80-100); Mean Platelet Volume 11.3 fL (9.1-12.4); NEUTROPHILS ABSOLUTE AUTO 17.28 K/mm3 (1.96-9.15); NEUTROPHILS PERCENT AUTO 85 % (41-73); Platelet Count 235 K/mm3 (150-400); RDW Coefficient Variation 15.1 % (11.7-14.2); RDW Standard Deviation 52.1 fL (35.1-46.3); Red Blood Cell Count 3.54 M/mm3 (3.80-5.20); White Blood Cell Count 20.38 K/mm3 (4.00-11.30)
[2025-03-10 06:17] LABS: Bun/Creatinine Ratio 25.7 (12.0-20.0); Creatinine, Blood 4.16 mg/dL (0.40-1.00); Potassium, Blood 4.4 mmol/L (3.5-5.5)
[2025-03-10 07:16] VITALS: BP 180/73
[2025-03-10] MEDS ORDERED: NS 250 ML IV PRN (09:10)
[2025-03-10] MEDS ORDERED: NITR100CA PO (13:34)
== END 2025-03-10 15:00 | disposition home or self-care (01) | DRG 871 ==
LOC: ER 17:10 → ICUE 19:30 → MEDS 03-09 17:50
PROVIDERS: Family Medicine; Student in an Organized Health Care Education/Training Program; ADMIT Internal Medicine
DX: A41.51 Sepsis due to Escherichia coli [E. coli] (principal); E10.10 Type 1 diabetes mellitus with ketoacidosis without coma; N17.0 Acute kidney failure with tubular necrosis; N39.0 Urinary tract infection, site not specified; E87.1 Hypo-osmolality and hyponatremia; R65.20 Severe sepsis without septic shock; E86.0 Dehydration; I10 Essential (primary) hypertension; Z79.84 Long term (current) use of oral hypoglycemic drugs; Z79.01 Long term (current) use of anticoagulants; Z79.82 Long term (current) use of aspirin
CPT/HCPCS: 0241U; 36415; 71045; 76770; 80048; 80053; 81001; 82010; 82570; 82803; 82947; 83036; 83605; 83690; 84300; 85025; 87040; 87077; 87086; 87186; 93005; 93010; 94762; 96361; 96374; 96375; 97161; 97530; 99285-25; A9270; J0692; J0696; J1644; J1815; J2405; J3480; J7030; J7120